=== PATIENT | male | born 2000 | race Asian ===

== ENCOUNTER 2020-04-15 20:19 | Emergency (ER) | payer OTHER ==
[2020-04-15 20:24] VITALS: BP 122/79
[2020-04-15] MEDS ORDERED: NS 1,000 ML IV ONE (21:15)
[2020-04-15] MEDS ORDERED: IBUPROFEN 800 MG TAB PO ONE (21:15)
[2020-04-15 21:43] LABS: BASO % 0.2 % (0.0-1.0); HEMATOCRIT 40.7 % (42.0-52.0); HEMOGLOBIN 13.5 g/dl (13.5-17.5); LYMPH # 0.7 10^3/uL (1.5-5.0); LYMPH % 8.5 % (24.0-44.0); MEAN CORPUSCULAR HEMOGLOBIN 28.4 pg (27.0-33.0); MEAN CORPUSCULAR HGB CONC 33.2 g/dl (32.0-36.5); MEAN CORPUSCULAR VOLUME 85.5 fl (80.0-96.0); MONO # 0.5 10^3/uL (0.0-0.8); MONO % 5.6 % (0.0-5.0); NEUTROPHILS # 7.1 10^3/uL (1.5-8.5); NEUTROPHILS % 85.6 % (36.0-66.0); PLATELET COUNT, AUTOMATED 240 10^3/uL (150-450); RED BLOOD COUNT 4.76 10^6/uL (4.30-6.10); WHITE BLOOD COUNT 8.2 10^3/uL (4.0-10.0)
[2020-04-15 22:24] LABS: MONO REFLEX EBV COMP NEGATIVE (NEGATIVE)
[2020-04-15 22:25] LABS: ALBUMIN 3.9 GM/DL (3.2-5.2); ALT/SGPT 15 U/L (12-78); BILIRUBIN,TOTAL 0.4 MG/DL (0.2-1.0); BLOOD UREA NITROGEN 7 MG/DL (7-18); CALCIUM LEVEL 8.9 MG/DL (8.5-10.1); CARBON DIOXIDE LEVEL 27 MEQ/L (21-32); CHLORIDE LEVEL 104 MEQ/L (98-107); CREATININE FOR GFR 1.15 MG/DL (0.70-1.30); GLOMERULAR FILTRATION RATE > 60.0 (>60); GLUCOSE, FASTING 104 MG/DL (70-100); POTASSIUM SERUM 3.8 MEQ/L (3.5-5.1); SODIUM LEVEL 137 MEQ/L (136-145)
[2020-04-15] MEDS ORDERED: IBUP-1022 PO (23:23)
[2020-04-17 16:08] LABS: EBV AB TO NUCLEAR ANTIGEN 88.3 U/mL (0.0-17.9); EBV VIRAL CAPSID AG IgG >600.0 U/mL (0.0-17.9); EBV VIRAL CAPSID AG IgM <36.0 U/mL (0.0-35.9)
== END 2020-04-16 00:04 | disposition home or self-care (01) ==
LOC: M ED 20:19
DX: B34.9 Viral infection, unspecified (principal)
CPT/HCPCS: 80053; 85025; 86308; 86664; 86665; 87880; 96360; 99284; U0003

== ENCOUNTER → 2020-08-10 | Outpatient (CLI) | payer OTHER ==
[~2020-08-10] MED LIST: IBUP-1022 PO
--- NOTE | 2020-08-10 10:01 | REPVR ---
PROCEDURE INFORMATION: Exam: MR Lumbar Spine Without Contrast. Exam date and time: 08/10/2020 9:50 AM Age: 20 years old Clinical indication: Lumbar spondylosis TECHNIQUE: Imaging protocol: Multiplanar magnetic resonance images of the lumbar spine without intravenous contrast. COMPARISON: No relevant prior studies available. FINDINGS: Vertebrae: There is straightening of the lumbar spine which could be secondary to positioning or muscle spasm. The lumbar vertebral bodies are normal in height and alignment.No acute fracture or dislocation is seen. Spinal epidural space: There is no evidence of epidural masses or hemorrhage. Spinal cord: The conus medullaris is normal. The cauda equina nerve roots demonstrate no crowding or displacement. L1-L2: There is no significant degenerative disc herniation.The spinal canal and neural foramina are patent and without significant stenosis. L2-L3: There is no significant degenerative disc herniation.The spinal canal and neural foramina are patent and without significant stenosis. L3-L4: There is no significant degenerative disc herniation.The spinal canal and neural foramina are patent and without significant stenosis. L4-L5: There is no significant degenerative disc herniation.The spinal canal and neural foramina are patent and without significant stenosis. L5-S1: There is no significant degenerative disc herniation.The spinal canal and neural foramina are patent and without significant stenosis. Soft tissues: The prevertebral soft tissues appear normal. IMPRESSION: MRI of the lumbar spine reveals no significant degenerative disc herniation . The spinal canal and neural foramina are patent and without significant stenosis. Electronically signed by: Wing Pham On 08/10/2020 10:00:55 AM
== END ==
LOC: M PLARAD 08:28
PROVIDERS: ATTEND Pain Medicine Interventional Pain Medicine
DX: M47.817 Spondylosis without myelopathy or radiculopathy, lumbosacral region (principal)